=== PATIENT | female | born 1950 | race Asian ===

== ENCOUNTER 2018-07-04 15:46 | Emergency (ER) | payer OTHER ==
[~2018-07-04] VITALS: Ht 160 cm; Wt 53.5 kg
[2018-07-04 16:09] VITALS: BP_SYST 123
[2018-07-04] MEDS ORDERED: NACL 0.9% 1,000 ML IV ONE ×2 (17:00→18:15)
[2018-07-04 17:43] LABS: CALCIUM 8.7 mg/dL (8.4-11.0); CREATININE 0.42 mg/dL (0.55-1.30); POTASSIUM 3.7 mmol/L (3.5-5.1)
[2018-07-04 17:45] LABS: PROTHROMBIN TIME 9.8 SECS (9.5-12.5)
[2018-07-04 17:48] LABS: ALBUMIN 3.9 g/dL (3.4-4.8); TOTAL BILIRUBIN 0.3 mg/dL (0.0-1.0)
[2018-07-04 18:05] LABS: HEMATOCRIT 41.1 % (36-48); HEMOGLOBIN 14.2 g/dL (12.0-16.0); MEAN CORPUSCULAR HEMOGLOBIN 32 pg (27-31); MEAN CORPUSCULAR HGB CONC 34 % (32-36); MEAN CORPUSCULAR VOLUME 94 fL (79.0-98.0); RED BLOOD CELL COUNT(AUTO) 4.38 MIL/uL (4.2-6.2); WHITE BLOOD COUNT (AUTO) 7.3 K/uL (4.8-10.8)
[2018-07-04 18:06] LABS: BASOPHILS # (AUTO) 0.1 K/uL (0.0-0.2); BASOPHILS % (AUTO) 0.7 % (0.0-2.0); EOSINOPHILS # (AUTO) 0.1 K/uL (0.0-0.4); EOSINOPHILS % (AUTO) 1.6 % (0.0-4.0); LYMPHOCYTES % (AUTO) 13.3 % (20.5-51.5); MONOCYTES # (AUTO) 0.4 K/uL (0.0-1.0); NEUTROPHILS # (AUTO) 5.7 K/uL (1.8-7.7); NEUTROPHILS % (AUTO) 78.4 % (40.0-70.0); PLATELET COUNT (AUTO) 230 K/uL (130-430); RED CELL DISTRIBUTION WIDTH 12.4 % (9.0-15.0)
--- NOTE | 2018-07-04 18:31 | NUR ---
Patient to ER bed 4 to gown for evaluation. Side rails up. Report given to Saranya SWAN.
[2018-07-04 19:02] LABS: BILIRUBIN,URINE NEGATIVE (NEGATIVE); BLOOD, URINE 1+ (NEGATIVE); CLARITY/URINE CLEAR (CLEAR); COLOR,URINE YELLOW (YELLOW); GLUCOSE,URINE NEGATIVE (NEGATIVE); KETONES,URINE NEGATIVE (NEGATIVE); LEUKOCYTE ESTERASE ,URINE TRACE (NEGATIVE); NITRITE, URINE NEGATIVE (NEGATIVE); PROTEIN URINE 1+ (NEGATIVE); UROBILINOGEN,URINE 0.2 (0.2-1.0)
[2018-07-04 19:11] LABS: BACTERIA,URINE FEW /HPF (None Seen); MUCUS,URINE 2+ /LPF (None Seen)
[2018-07-04] MEDS ORDERED: cefTRIAXone 1 GM IVPB PREMIX 50 ML IV ONE (19:30)
--- NOTE | 2018-07-04 20:00 | NUR ---
Pt came to [facility] ED for dizziness which started at 5AM which progressively got worse. Per son pt fell a few times but denied KO. Reported to have diplopia earlier today but denies now. Reports nausea and vomiting 2 days ago. Per son pt was diagnosed with a UTI last tuesday and started on ciproflaxin which she is still taking. Reports she started taking baclofen per MD order if transgeminal neuralgia pain increases. Denies any other complaints/injuries noted. Will cont. to monitor.
--- NOTE | 2018-07-04 20:00 | NUR ---
Pt came to the ED for dizziness which started at 5AM which progressively got worse. Per son pt fell a few times but denied KO. Reported to have diplopia earlier today but denies now. Reports nausea and vomiting 2 days ago. Per son pt was diagnosed with a UTI last tuesday and started on ciproflaxin which she is still taking. Reports she started taking baclofen per MD order if transgeminal neuralgia pain increases. Denies any other complaints/injuries noted. Will cont. to monitor.
--- NOTE | 2018-07-04 20:05 | NUR ---
ER at bedside examining patient.
[2018-07-04 21:24] VITALS: BP_SYST 123
--- NOTE | 2018-07-04 21:24 | NUR ---
Patient given written and verbal discharge instructions and verbalizes understanding. ER MD Dr. Brandon discussed with patient the results and treatment provided. Patient in stable condition. ID arm band removed. IV catheter removed intact and dressing applied, no active bleeding. Patient educated on pain management and to follow up with PMD within 2-3 days. Pain Scale 0/10. Opportunity for questions provided and answered. Medication side effect fact sheet provided.
== END 2018-07-04 21:24 | disposition home or self-care (01) ==
LOC: SED 15:46
DX: R42 Dizziness and giddiness (principal); I10 Essential (primary) hypertension
CPT/HCPCS: 36415; 70450; 71045; 80053; 83880; 81000; 84484; 85025; 85610; 87040; 87086; 93005; 96361; 96365; 99284; J0696; J7030